=== PATIENT | female | born 1945 | race Two or more races ===

== ENCOUNTER → 2018-01-17 | Outpatient (REF) | payer BC, MEDICARE ==
[2018-01-17 16:25] LABS: BASO # 0.1 10^3/uL (0.0-0.2); EOS # 0.2 10^3/uL (0.0-0.50); EOS % 2.7 % (0.0-3.0); HEMATOCRIT 42.2 % (36.0-47.0); HEMOGLOBIN 13.7 g/dl (12.0-16.0); IMMATURE GRANULOCYTE % 0.1 % (0-3.0); LYMPH # 1.8 10^3/uL (1.5-4.5); MEAN CORPUSCULAR HEMOGLOBIN 29.6 pg (27.0-33.0); MEAN CORPUSCULAR HGB CONC 32.5 g/dl (32.0-36.5); MEAN CORPUSCULAR VOLUME 91.1 fl (80.0-96.0); MONO # 0.6 10^3/uL (0.0-0.8); NEUTROPHILS # 4.1 10^3/uL (1.8-7.7); NEUTROPHILS % 60.2 % (36.0-66.0); PLATELET COUNT, AUTOMATED 269 10^3/uL (150-450); RED BLOOD COUNT 4.63 10^6/uL (4.00-5.40); RED CELL DISTRIBUTION WIDTH 12.7 % (11.5-14.5); WHITE BLOOD COUNT 6.8 10^3/uL (4.0-10.0)
[2018-01-17 16:45] LABS: ALBUMIN/GLOBULIN RATIO 1.25 (1.00-1.93); ALKALINE PHOSPHATASE 83 U/L (45-117); ALT/SGPT 18 U/L (12-78); ANION GAP 6 MEQ/L (8-16); AST/SGOT 16 U/L (7-37); BILIRUBIN,TOTAL 0.3 MG/DL (0.2-1.0); BLOOD UREA NITROGEN 23 MG/DL (7-18); CALCIUM LEVEL 9.2 MG/DL (8.8-10.2); CARBON DIOXIDE LEVEL 31 MEQ/L (21-32); CHLORIDE LEVEL 103 MEQ/L (98-107); CREATININE FOR GFR 0.84 MG/DL (0.55-1.30); GLOMERULAR FILTRATION RATE > 60.0 (>39); GLUCOSE, FASTING 98 MG/DL (70-100); POTASSIUM SERUM 4.5 MEQ/L (3.5-5.1); SODIUM LEVEL 140 MEQ/L (136-145); TOTAL PROTEIN 7.2 GM/DL (6.4-8.2)
== END ==
LOC: M SFHCCLAY 09:32
DX: R07.89 Other chest pain (principal); R53.83 Other fatigue
CPT/HCPCS: 84443

== ENCOUNTER → 2018-02-14 | Outpatient (REF) | payer BC, MEDICARE ==
[2018-02-14 17:27] LABS: TOTAL T3 115.9 NG/DL (60.0-181.0)
[2018-02-14 17:36] LABS: THYROXINE (T4) 11.4 UG/DL (4.5-12.0)
== END ==
LOC: M SFHCCLAY 11:25
DX: E03.9 Hypothyroidism, unspecified (principal)
CPT/HCPCS: 84443

== ENCOUNTER → 2018-05-21 | Outpatient (REF) | payer BC, MEDICARE | LOC: M SFHCCLAY 09:31 | DX: E03.9 Hypothyroidism, unspecified (principal) ==

== ENCOUNTER → 2018-10-22 | Outpatient (CLI) | payer BC, MEDICARE | LOC: M PLARAD 15:33 | DX: R91.1 Solitary pulmonary nodule (principal) | CPT/HCPCS: 78815 ==

== ENCOUNTER 2018-11-18 05:49 | Day surgery (SDC) | payer BC, MEDICARE ==
[~2018-11-18] VITALS: Ht 152.4 cm; Wt 57.5 kg
[~2018-11-18 05:49] MED LIST: ANOR1AER PO; LEVO50TA5 PO; LEXA5TAB13 PO
[2018-11-18] MEDS ORDERED: LR 1,000 ML IV ONE (06:00)
[2018-11-18] MEDS ORDERED: ROCURONIUM BROMIDE 50 MG/5 ML VIAL As Ordered ONE (07:13)
[2018-11-18] MEDS ORDERED: dexameTHASONE 4 MG/ML 1ML VIAL (J1100) As Ordered ONE (07:13)
[2018-11-18] MEDS ORDERED: PROPOFOL 200 MG/20 ML VIAL As Ordered ONE (07:13)
[2018-11-18] MEDS ORDERED: LIDOCAINE 2% INJ 100 MG/5 ML SDV (FOR ANES.) As Ordered ONE (07:13)
[2018-11-18] MEDS ORDERED: ONDANSETRON 4MG/2ML VIAL (J2405) As Ordered ONE (07:13)
[2018-11-18] MEDS ORDERED: MIDAZOLAM INJ 2 MG/2 ML VIAL (J2250) As Ordered ONE (07:16)
[2018-11-18] MEDS ORDERED: fentaNYL 250 MCG/5 ML INJECTION (J3010) As Ordered ONE (07:16)
[2018-11-18] MEDS ORDERED: CETACAINE SPRAY 5GM As Ordered ONE (07:22)
[2018-11-18] MEDS ORDERED: THROMBIN SOLN 20,000 UNITS KIT As Ordered ONE (07:22)
[2018-11-18] MEDS ORDERED: LIDOCAINE 1% MDV 20ML VIAL As Ordered ONE (07:22)
[2018-11-18] MEDS ORDERED: EPINEPHrine 1MG/10ML SYRINGE 1.5IN As Ordered ONE (07:23)
[2018-11-18] MEDS ORDERED: LIDOCAINE VISCOUS 2% SOLN 15ML UDC As Ordered ONE (07:23)
[2018-11-18] MEDS ORDERED: SUGAMMADEX SODIUM 500 MG/5 ML VIAL (BRIDION) As Ordered ONE (08:09)
--- NOTE | 2018-11-18 08:40 | RO ---
DATE OF PROCEDURE: 11/18/2018 PREPROCEDURE DIAGNOSES: Right lower lobe nodule, abnormal chest CT. POSTPROCEDURE DIAGNOSES: Right lower lobe nodule, abnormal chest CT. Findings of normal anatomic variation of the airway. PROCEDURE: Bronchoscopy with endobronchial ultrasound and electromagnetic navigation procedure with fiducial marker placement. SURGEON: Dr. Black Walsh. PATTERN STAMPER: None. ANESTHESIA: General. Please refer to their records for details. ESTIMATED BLOOD LOSS: None significant. SPECIMENS OBTAINED: 1. Right lower lobe transbronchial fine needle aspiration (FNA). 2. Right lower lobe forceps transbronchial biopsy. 3. Right lower lobe transbronchial brushing. DESCRIPTION OF PROCEDURE: After informed consent was reviewed with the patient in the preoperative area, she was brought to OR #6 which is a pre-mapped room. Time out was performed with two patient identifiers identifying correct site and correct procedure. General anesthesia was initiated with an 8.5 endotracheal tube and case was handed over to me. Cetacaine spray was used to anesthetize the airways. The IT190 bronchoscope was then inserted into the airway after another time out with two patient identifiers identifying correct site, correct procedure. The bronchoscope was inserted into the airway. Jo with sharp right main stem bronchi were normal. Trachea was midline. Right bronchus (RB) 1 through 10 was normal without endobronchial lesions. Left bronchus (LB) 1 through 10 normal without endobronchial lesions. There were no significant abnormalities except for anatomic variation. The bronchoscope was then retracted into the endotracheal tube. Automatic registration was then performed with navigation procedure. This was confirmed. Target #1 was easily navigated to in the superior basal segment right lower lobe. This was confirmed with fluoroscopy and radial probe ultrasound. GenCut fine needle aspirations were then taken along with forceps biopsies. After adequate sampling, brushing was performed. One marker was then placed. It was proximal to the area of biopsy. Sheath was then removed. Airways were suctioned. Bronchoscope was then removed. Endobronchial ultrasound was then inserted. I viewed the subcarinal and pretracheal area. There was no evidence of mediastinal adenopathy. No fine needle aspirations were taken at that point in time. Patient tolerated the procedure well. Postprocedure chest x-ray is pending. [facility]
[2018-11-18] MEDS ORDERED: LR 1,000 ML IV SCH (09:00)
[2018-11-18] MEDS ORDERED: fentaNYL 100 MCG/2 ML INJECTION (J3010) IV PRN (09:00)
[2018-11-18] MEDS ORDERED: ONDANSETRON 4MG/2ML VIAL (J2405) IV PRN (09:00)
--- NOTE | 2018-11-18 09:16 | REP ---
Portable chest x-ray: Single view. History: Postop. Findings: The lungs are hyperinflated. There is a fiducial marker in the right perihilar region. There is no evidence of pneumothorax or infiltrate. Heart is not enlarged. Impression: Right perihilar fiducial marker noted. No complication seen. Electronically Signed by Austen Novak MD 11/18/2018 10:57 A
[2018-11-18 10:35] VITALS: BP 124/57
== END 2018-11-18 10:45 | disposition home or self-care (01) ==
LOC: M SDC 05:49
PROVIDERS: ATTEND Internal Medicine Pulmonary Disease
DX: R91.1 Solitary pulmonary nodule (principal); J44.9 Chronic obstructive pulmonary disease, unspecified; Z87.891 Personal history of nicotine dependence; E03.9 Hypothyroidism, unspecified; F32.9 Major depressive disorder, single episode, unspecified; Z79.899 Other long term (current) drug therapy
CPT/HCPCS: 31623; 31626; 31627; 31628; 31629; 71045; 76000; 88104; 88173; 88305; 88313; A4648; J1100; J2250; J2405; J3010

== ENCOUNTER → 2018-12-12 | Outpatient (REF) | payer BC, MEDICARE ==
[2018-12-13 12:37] LABS: THYROID STIMULATING HORMONE 2.03 uIU/ML (0.358-3.740); THYROXINE (T4) 12.3 UG/DL (4.5-12.0)
== END ==
LOC: M SFHCCLAY 13:59
PROVIDERS: ATTEND Family Medicine
DX: E03.9 Hypothyroidism, unspecified (principal)

== ENCOUNTER → 2019-02-19 | Outpatient (REF) | payer BC, MEDICARE ==
[2019-02-20 13:38] LABS: CHLAMYDIA DNA AMPLIFICATION NEGATIVE (NEGATIVE); GC DNA AMPLIFICATION NEGATIVE (NEGATIVE)
== END ==
LOC: M SFHCCLAY 14:41
PROVIDERS: ATTEND Nurse Practitioner Family
DX: N76.0 Acute vaginitis (principal)

== ENCOUNTER → 2019-05-12 | Outpatient (CLI) | payer BC, MEDICARE ==
--- NOTE | 2019-05-12 12:09 | REP ---
Clinical: Solitary pulmonary nodule. Technique: Axial noncontrast images from the thoracic inlet to the upper abdomen with coronal and sagittal re-formations. Comparison: 09/26/2018. Findings: 8 mm pulmonary nodule with subtle spiculated margin in the right lower lobe (image 43) may be slightly increased in size from prior examination. 7 mm noncalcified subpleural nodule is identified along the posterior right upper lobe (image 23) which is similar to prior examination. Underlying chronic COPD/emphysematous changes with mild chronic bronchiectasis again noted. No further consolidation. No effusion. No pneumothorax. No definite adenopathy. Atherosclerotic changes to the aorta and coronary arteries noted without aortic aneurysm or cardiomegaly. No pericardial effusion. Limited upper abdomen demonstrates normal bilateral adrenal glands and evidence of prior cholecystectomy. Musculoskeletal structures intact. Impression: Two nodular densities as described above similar to prior examination although subtle increase in size cannot definitively be excluded due to variations in technique. Electronically Signed by Juan Jose Galdamez MD 05/12/2019 12:00 P
== END ==
LOC: M RAD 10:49
PROVIDERS: ATTEND Internal Medicine Pulmonary Disease
DX: R91.1 Solitary pulmonary nodule (principal)

== ENCOUNTER → 2019-06-02 | Outpatient (REF) | payer BC, MEDICARE | LOC: M SFHCCLAY 14:14 | PROVIDERS: ATTEND Family Medicine | DX: E03.9 Hypothyroidism, unspecified (principal) ==

== ENCOUNTER 2019-08-30 14:43 | Emergency (ER) | payer BC, MEDICARE ==
[~2019-08-30] VITALS: Ht 152.4 cm; Wt 56.6 kg
[2019-08-30] MEDS ORDERED: SPIR12.9 (14:50)
[2019-08-30] MEDS ORDERED: LACTULOSE 20 GM/30 ML SYRUP UD PO ONE (16:15)
[2019-08-30] MEDS ORDERED: MIRALAX *UNIT DOSE* 17GM PACKET PO ONE (16:45)
[2019-08-30] MEDS ORDERED: FLEET OIL RETENTION ENEMA PR PRN (16:45)
[2019-08-30] MEDS ORDERED: ISOVUE-370 76% 100ML VIAL (Q9967) As Ordered ONE (17:34)
[2019-08-30 17:37] LABS: HEMATOCRIT 41.1 % (36.0-47.0); HEMOGLOBIN 13.7 g/dl (12.0-15.5); MEAN CORPUSCULAR HEMOGLOBIN 30.8 pg (27.0-33.0); MEAN CORPUSCULAR HGB CONC 33.3 g/dl (32.0-36.5); MEAN CORPUSCULAR VOLUME 92.4 fl (80.0-96.0); PLATELET COUNT, AUTOMATED 276 10^3/uL (150-450); RED BLOOD COUNT 4.45 10^6/uL (4.00-5.40)
[2019-08-30 18:03] LABS: ALBUMIN 3.7 GM/DL (3.2-5.2); ALT/SGPT 25 U/L (12-78); BILIRUBIN,DIRECT < 0.1 MG/DL (0.0-0.2); BILIRUBIN,TOTAL 0.3 MG/DL (0.2-1.0); LIPASE 88 U/L (73-393); TOTAL PROTEIN 6.9 GM/DL (6.4-8.2)
--- NOTE | 2019-08-30 18:23 | REPVR ---
PROCEDURE INFORMATION: Exam: CT Abdomen And Pelvis With Contrast Exam date and time: 08/30/2019 5:35 PM Clinical history: 74 years old, female; Constipation; Additional info: Constipation x 8 days, fullness, weight loss TECHNIQUE: Imaging protocol: Computed tomography of the abdomen and pelvis with intravenous contrast. Radiation optimization: All CT scans at this facility use at least one of these dose optimization techniques: automated exposure control; mA and/or kV adjustment per patient size (includes targeted exams where dose is matched to clinical indication); or iterative reconstruction. Contrast material: ISOVUE 370; Contrast volume: 100 ml; Contrast route: IV; COMPARISON: PT PET/CT Skull/mid thigh 10/22/2018 5:13 PM FINDINGS: Lungs: No suspicious mass or airspace process in the visualized lung bases. Liver: Liver appears normal with no focal abnormality. Gallbladder and bile ducts: Gallbladder is surgically absent. Prominent central bile ducts, likely postcholecystectomy capacitance effect. Pancreas: Pancreas appears normal. No focal mass or peripancreatic inflammation. Spleen: Spleen appears homogeneous without focal mass. Adrenals: Adrenal glands are normal in appearance. Kidneys and ureters: Kidneys appear normal, with no stone, solid mass or hydronephrosis. Stomach and bowel: No evidence of small bowel obstruction. Multiple fluid-filled loops of nondilated bowel with enhancing mucosa are present. Diverticular changes are present within the colon without inflammation. Appendix: Appendix is not seen. No RLQ inflammation to suggest appendicitis. Intraperitoneal space: No pneumoperitoneum. Vasculature: Atherosclerotic change present in the aorta, without aneurysm. Main portal and splenic veins enhance normally. Lymph nodes: No enlarged lymph nodes. Bladder: Urinary bladder appears normal. Reproductive: Uterus is surgically absent. Ovaries are not visualized. Bones/joints: Bony structures show no acute fracture or destructive process. IMPRESSION: 1. No evidence of rectal fecal impaction. Recommend a roughly 4 cm in diameter with small volume of stool present 2. Colonic diverticulosis without focal inflammation. Electronically signed by: Herbert De Paz On 08/30/2019 18:23:10 PM
[2019-08-30] MEDS ORDERED: MAGNESIUM CITRATE 300 ML BTL PO ONE (19:45)
[2019-08-30] MEDS ORDERED: LACT10SO29 PO (21:15)
[2019-08-30 21:22] VITALS: BP 139/60
--- NOTE | 2019-09-01 08:26 | REP ---
KUB: Single view. History: Abdomen pain. Constipation. Findings: There are clips in right upper quadrant of the abdomen. The bowel gas pattern is normal. There is air and stool in a nondistended colon. No colonic distension is seen. No small bowel dilation is noted. Psoas margins and flank stripes are intact. There are degenerative changes in the lumbar spine and hips. Impression: Normal bowel gas pattern. Clips right upper quadrant. Otherwise negative. Electronically Signed by Austen Novak MD 08/30/2019 03:40 P
== END 2019-08-30 21:25 | disposition home or self-care (01) ==
LOC: M ED 14:43
DX: K59.00 Constipation, unspecified (principal); K80.20 Calculus of gallbladder without cholecystitis without obstruction; Z87.448 Personal history of other diseases of urinary system; K21.9 Gastro-esophageal reflux disease without esophagitis; K57.32 Diverticulitis of large intestine without perforation or abscess without bleeding; E03.9 Hypothyroidism, unspecified; R91.1 Solitary pulmonary nodule; Z87.891 Personal history of nicotine dependence; Z87.19 Personal history of other diseases of the digestive system; Z79.899 Other long term (current) drug therapy; Z88.5 Allergy status to narcotic agent
CPT/HCPCS: 74018; 74177; 80047; 80076; 83690; 85027; 99284; Q9967

== ENCOUNTER → 2019-10-14 | Outpatient (REF) | payer BC, MEDICARE ==
[~2019-10-14] MED LIST changes: +LACT10SO29 PO; +SPIR12.9
[2019-10-15 15:39] LABS: BASO # 0.1 10^3/uL (0.0-0.2); BASO % 0.7 % (0.0-1.0); EOS # 0.2 10^3/uL (0.0-0.5); HEMATOCRIT 38.3 % (36.0-47.0); HEMOGLOBIN 12.4 g/dl (12.0-15.5); LYMPH # 1.9 10^3/uL (1.5-5.0); LYMPH % 27.4 % (24.0-44.0); MEAN CORPUSCULAR HEMOGLOBIN 30.5 pg (27.0-33.0); MEAN CORPUSCULAR HGB CONC 32.4 g/dl (32.0-36.5); MEAN CORPUSCULAR VOLUME 94.3 fl (80.0-96.0); MONO # 0.6 10^3/uL (0.0-0.8); MONO % 8.8 % (0.0-5.0); NEUTROPHILS # 4.2 10^3/uL (1.5-8.5); NEUTROPHILS % 59.8 % (36.0-66.0); PLATELET COUNT, AUTOMATED 286 10^3/uL (150-450); RED BLOOD COUNT 4.06 10^6/uL (4.00-5.40); WHITE BLOOD COUNT 6.9 10^3/uL (4.0-10.0)
[2019-10-15 16:04] LABS: ALBUMIN 3.5 GM/DL (3.2-5.2); ALT/SGPT 25 U/L (12-78); AMYLASE 21 U/L (25-115); BILIRUBIN,TOTAL 0.2 MG/DL (0.2-1.0); BLOOD UREA NITROGEN 15 MG/DL (7-18); CALCIUM LEVEL 9.2 MG/DL (8.8-10.2); CARBON DIOXIDE LEVEL 28 MEQ/L (21-32); CHLORIDE LEVEL 105 MEQ/L (98-107); CREATININE FOR GFR 0.83 MG/DL (0.55-1.30); GLOMERULAR FILTRATION RATE > 60.0 (>39); GLUCOSE, FASTING 71 MG/DL (70-100); LIPASE 103 U/L (73-393); SODIUM LEVEL 141 MEQ/L (136-145); TOTAL PROTEIN 6.9 GM/DL (6.4-8.2)
== END ==
LOC: M SFHCCLAY 14:06
PROVIDERS: ATTEND Family Medicine
DX: R10.12 Left upper quadrant pain (principal)

== ENCOUNTER 2019-11-01 01:23 | Emergency (ER) | payer BC, MEDICARE ==
[~2019-11-01] VITALS: Ht 152.4 cm; Wt 52.3 kg
[2019-11-01] MEDS ORDERED: PANT20TA2 (01:33)
[2019-11-01 03:33] LABS: BASO # 0.1 10^3/uL (0.0-0.2); BASO % 0.7 % (0.0-1.0); EOS # 0.1 10^3/uL (0.0-0.5); EOS % 1.3 % (0.0-3.0); HEMATOCRIT 35.2 % (36.0-47.0); HEMOGLOBIN 11.5 g/dl (12.0-15.5); LYMPH # 1.3 10^3/uL (1.5-5.0); MEAN CORPUSCULAR HEMOGLOBIN 30.2 pg (27.0-33.0); MEAN CORPUSCULAR HGB CONC 32.7 g/dl (32.0-36.5); MEAN CORPUSCULAR VOLUME 92.4 fl (80.0-96.0); MONO # 0.7 10^3/uL (0.0-0.8); MONO % 7.4 % (0.0-5.0); NEUTROPHILS # 6.8 10^3/uL (1.5-8.5); PLATELET COUNT, AUTOMATED 290 10^3/uL (150-450); RED BLOOD COUNT 3.81 10^6/uL (4.00-5.40)
[2019-11-01] MEDS ORDERED: MIRA3350 PO (03:35)
[2019-11-01] MEDS ORDERED: TRAM50TA2 PO (03:35)
[2019-11-01] MEDS ORDERED: ONDA8TAB7 PO (03:35)
[2019-11-01 03:59] LABS: ALBUMIN 2.9 GM/DL (3.2-5.2); ALT/SGPT 54 U/L (12-78); BILIRUBIN,DIRECT 0.2 MG/DL (0.0-0.2); BILIRUBIN,TOTAL 0.6 MG/DL (0.2-1.0); BLOOD UREA NITROGEN 13 MG/DL (7-18); CALCIUM LEVEL 8.8 MG/DL (8.8-10.2); CARBON DIOXIDE LEVEL 25 MEQ/L (21-32); CHLORIDE LEVEL 102 MEQ/L (98-107); CREATININE FOR GFR 0.65 MG/DL (0.55-1.30); GLOMERULAR FILTRATION RATE > 60.0 (>39); GLUCOSE, FASTING 90 MG/DL (70-100); LIPASE 83 U/L (73-393); POTASSIUM SERUM 3.9 MEQ/L (3.5-5.1); SODIUM LEVEL 136 MEQ/L (136-145); TOTAL PROTEIN 6.6 GM/DL (6.4-8.2)
[2019-11-01] MEDS ORDERED: KETOROLAC 30 MG/ML VIAL (J1885) IV ONE (04:45)
[2019-11-01] MEDS ORDERED: NS 1,000 ML IV ONE (04:45)
[2019-11-01] MEDS ORDERED: CIPR-249 PO (06:44)
[2019-11-01] MEDS ORDERED: PYRI1TAB5 PO (06:44)
[2019-11-01] MEDS ORDERED: PHENAZOPYRIDINE 100 MG TAB PO ONE (06:45)
[2019-11-01] MEDS ORDERED: CIPROFLOXACIN 500 MG TAB PO ONE (06:45)
[2019-11-01 06:54] VITALS: BP 129/68
[2019-11-13] MEDS ORDERED: OXYC1TAB23 PO (15:17)
== END 2019-11-01 07:00 | disposition home or self-care (01) ==
LOC: M ED 01:23
DX: N39.0 Urinary tract infection, site not specified (principal); Z79.899 Other long term (current) drug therapy; Z88.5 Allergy status to narcotic agent
CPT/HCPCS: 80048; 80076; 81001; 83690; 85025; 87086; 93041; 96361; 96374; 99284; J1885

== ENCOUNTER → 2019-11-14 | Outpatient (CLI) | payer BC, MEDICARE ==
[~2019-11-14] MED LIST changes: +CIPR-249 PO; +GASTROGRAFIN SOLUTION 30ML (Q9963) As Ordered ONE; +ISOVUE-370 76% 100ML VIAL (Q9967) As Ordered ONE; +MIRA3350 PO; +ONDA8TAB7 PO; +OXYC1TAB23 PO; +PANT20TA2; +PYRI1TAB5 PO; +TRAM50TA2 PO
--- NOTE | 2019-11-14 09:29 | REP ---
Clinical: Metastatic disease. Adenopathy. Technique: Axial contrast enhanced images from the thoracic inlet to the upper abdomen using 100 ml Isovue 370 intravenous contrast material with multiplanar re-formations. Findings: Satisfactory enhancement of the pulmonary vasculature is achieved and no filling defects are identified to suggest pulmonary embolus. Further evaluation of the mediastinum demonstrates normal thoracic aorta, heart and pericardium. The bilateral lung arias demonstrate chronic emphysematous changes and scattered scarring. A subpleural nodule in the posterior right upper lobe and nodule in the right lower lobe remains stable compared to 05/12/2019. No new consolidation, nodule or mass appreciated. No effusion. 18 mm lymph node in the right hilum identified. No further significant adenopathy noted. Impression: No evidence for pulmonary embolus. No acute mediastinal or pleural parenchymal process. Two stable nodules as compared to the 05/12/2019. 18 mm right hilar lymph node. No further adenopathy. Electronically Signed by Juan Jose Galdamez MD 11/14/2019 09:19 A
--- NOTE | 2019-11-14 09:41 | REP ---
Clinical: Metastatic lymphadenopathy. Technique: Axial contrast enhanced images from the lung bases to the pubic symphysis using oral (per protocol) and 100 ml Isovue 370 intravenous contrast material with coronal and sagittal re-formations. Delayed images of the abdomen obtained. Findings: Liver, spleen, pancreas, bilateral adrenal glands and kidneys are normal. Evidence for prior cholecystectomy. There is no evidence for bowel obstruction or acute inflammatory process. Colonic and sigmoid diverticulosis noted without acute diverticulitis. Pelvis demonstrates collapsed bladder and evidence for prior hysterectomy. Multiple mesenteric mass lesions are appreciated which measure up to 5 cm maximal diameter and appear markedly increased/new as compared to 08/30/2019. No ascites. No retroperitoneal adenopathy. No free air. Atherosclerotic changes to the aorta and vasculature. Osseous structures without obvious focal lesion. Impression: 1. Large neoplastic mass lesions scattered throughout the mesentery with the largest lesions measuring up to 5 cm and the deepest right lower quadrant lesion having central necrotic appearance. Lesions are new/considerably increased in size from prior examination. 2. Diverticulosis without acute diverticulitis. 3. No ascites. 4. No retroperitoneal adenopathy. Electronically Signed by Juan Jose Galdamez MD 11/14/2019 09:32 A
== END ==
LOC: M RAD 07:52
PROVIDERS: ATTEND Internal Medicine Medical Oncology
DX: C34.90 Malignant neoplasm of unspecified part of unspecified bronchus or lung (principal)
CPT/HCPCS: 71260; 74177; Q9963; Q9967

== ENCOUNTER → 2019-11-19 | Outpatient (CLI) | payer BC, MEDICARE ==
[~2019-11-19] MED LIST changes: +COLA100C5 PO; -GASTROGRAFIN SOLUTION 30ML (Q9963) As Ordered ONE; -ISOVUE-370 76% 100ML VIAL (Q9967) As Ordered ONE; +OMEP40CA97 PO; +STIO1AER IN
--- NOTE | 2019-11-19 17:41 | REP ---
PET/CT: History: Lung nodule. Comparisons: Comparison PET-CT study October 22, 2018. Comparison CT study of the chest is from 14 November 2019. Comparison is made with abdominal CT study dated November 14, 2019. TECHNIQUE: 71 minutes following the intravenous injection of a 8.90 mCi dose of F-18 FDG, three-dimensional PET scintigraphy is acquired from the skull base to the proximal thighs. Triplanar noncontrast CT scanning is acquired through the same anatomic range for attenuation correction, and image registration with scan parameters optimized to minimize radiation exposure to the patient. PET scintigraphy and CT datasets were fused and displayed on a workstation with multiplanar and projection display capability. PET/CT Findings: Head and neck soft tissues are unremarkable. The superior segment right lower lobe pulmonary nodule seen on the chest CT study is hypermetabolic. Maximum standard uptake value is 5.07. There is right hilar hypermetabolic adenopathy. Maximum standard uptake value is 9.53. There is no hypermetabolic uptake at the site of the pleural-based nodular density in the upper lobe on the right. This is small. No other abnormal hypermetabolic uptake is seen in the thorax. In the abdomen, there is multifocal peritoneal nodular hypermetabolic uptake. Anterior to the upper pole of the left kidney, there is a 1.8 cm small mass which shows hypermetabolic uptake, maximum standard uptake value here is 17.03. There is a second smaller mass adjacent to this in the left upper quadrant with maximum standard uptake value 10.35. There is a mass-like opacity associated with a small bowel loop in the left mid abdomen which is also hypermetabolic. Maximum standard uptake value in this is 13.91. This area measures 4.0 cm in greatest diameter. There is a hypermetabolic 1 cm paraduodenal lymph node in the right upper quadrant with maximum standard uptake value 4.33. There are three bowel associated focal hypermetabolic masses in the pelvis anteriorly. Maximum standard uptake value in these ranges up to 19.24. These correspond to the multiple masses seen on CT. Lastly, there is a small 1 cm hypermetabolic nodule in the anterior margin of the gluteus musculature adjacent to the iliac crest on the left. Maximum SUV value 6.20. There is no abnormal skeletal hypermetabolic uptake. Exam is otherwise unremarkable. Impression: There are multiple new hypermetabolic chandler and bowel associated masses in the abdomen. There is a skeletal muscle deposit in the left gluteus musculature. In addition, the right lower lobe spiculated nodule and a new right hilar lymph node are hypermetabolic in the chest. Two separate primary malignancies are a possibility. Electronically Signed by Austen Novak MD 11/19/2019 09:28 P
== END ==
LOC: M PLARAD 07:29
PROVIDERS: ATTEND Internal Medicine Medical Oncology
DX: R91.1 Solitary pulmonary nodule (principal)
CPT/HCPCS: 78815; A9552

== ENCOUNTER → 2019-11-25 | Outpatient (CLI) | payer BC, MEDICARE ==
[~2019-11-25] MED LIST changes: +LIDOCAINE 1% MDV 20ML VIAL As Ordered ONE; +ONDA8TAB10 PO; -ONDA8TAB7 PO; +OXYC10TA3 PO
[2019-11-25 16:21] VITALS: BP 153/60
--- NOTE | 2019-11-25 18:11 | REP ---
ULTRASOUND-GUIDED ABDOMINAL MASS BIOPSY The procedure was performed under the direct supervision of Dr. Novak. Patient has a history of large neoplastic mass lesions scattered throughout the mesentery seen on a previous CT scan dated 11/14/2019. A mass inferior to the umbilicus was localized for biopsy using ultrasound guidance. The skin was prepped and draped in a sterile fashion. 1% lidocaine was used as a local anesthetic. Using ultrasound guidance a 17/18 gauge coaxial needle biopsy system was inserted and advanced into the mass. Eight core biopsy samples were obtained and sent to lab. The patient tolerated the procedure well and there were no immediate complications. After the appropriate amount of monitored convalescence the patient was discharged from the department. Electronically Signed by JULIO Eller 11/25/2019 05:03 P Electronically Signed by Austen Novak MD 11/25/2019 06:02 P
== END ==
LOC: M IRPRO 14:46
PROVIDERS: ATTEND Internal Medicine Medical Oncology
DX: C79.89 Secondary malignant neoplasm of other specified sites (principal)

== ENCOUNTER → 2019-12-08 | Outpatient (CLI) | payer BC, MEDICARE ==
[~2019-12-08] MED LIST changes: +ISOVUE-300 61% 50ML VIAL (Q9967) As Ordered ONE; +MIDAZOLAM INJ 2 MG/2 ML VIAL (J2250) As Ordered ONE; +MIRA1POW3 PO; +PROC10TA4 PO; +SENN-85 PO; +ceFAZolin 1GM INJ (J0690 PER 500MG) As Ordered ONE; +diphenhydrAMINE INJ 50MG/ML VIAL (J1200) As Ordered ONE; +fentaNYL 100 MCG/2 ML INJECTION (J3010) As Ordered ONE
--- NOTE | 2019-12-08 14:20 | IRHP ---
[facility] IR Pre-Procedure H & P General Date of Service: Dec 08, 2019 Procedure: Same Day Surgery Interval History and Physical I have seen the patient and reviewed last H & P performed within 30 days. There is no significant interval change. History of Present Illness Chief Complaint The patient is a 74-year-old female admitted with a reason for visit of Chemo Treatment. 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 LUNGS: normal breathing at rest. ASA Classification ASA Classification: II-Mild systemic disease, III-Severe systemic dis. Mallampati Score: II NPO: Yes Problems with prior sedation: No Obstructive Sleep Apnea: No Plan moderate sedation Allergies Coded Allergies: morphine (Verified Adverse Reaction, Intermediate, HALLUCINATIONS, 02/13/19) Home Medications Scheduled Docusate Sodium (Colace), 100 MG PO DAILY, (Reported) Escitalopram Oxalate (Lexapro), 5 MG PO DAILY, (Reported) Levothyroxine Sodium (Levothyroxine Sodium), 50 MCG PO DAILY, (Reported) Scheduled PRN Oxycodone HCl/Acetaminophen (Oxycodone-Acetaminophen 10-325), 1 TAB PO QIDP PRN for pain Miscellaneous Medications Tiotropium Br/Olodaterol HCl (Stiolto Respimat Inhal [place]), 1 AER IN, (Reported) Discontinued Medications Omeprazole (Omeprazole), 1 CAP PO DAILY Discontinued Reason: Pt states not taking Oxycodone HCl/Acetaminophen (Oxycodone-Acetaminophen 5-325), 1 TAB PO QIDP PRN for pain, (Reported) Discontinued Reason: Pt states not taking VS, I&O, 24H, Fishbone Vital Signs/I&O Vital Signs Date Time Temp Pulse Resp B/P (MAP) Pulse Ox O2 Delivery O2 Flow Rate FiO2 12/08/19 14:00 81 16 98 Nasal Cannula 12/08/19 13:45 2 12/08/19 13:01 98.8 BREANNA JORGE MD Dec 08, 2019 14:19
[2019-12-08 16:15] VITALS: BP 127/59
--- NOTE | 2019-12-09 09:08 | REP ---
IR Ultrasound and fluoroscopy-guided port placement. IR Ultrasound of the neck. IR Moderate sedation. Clinical information: Adenocarcinoma. Physician: Dr. Sexton. Procedure: The patient was advised of the benefits, risks, and alternatives of the procedure and informed consent was obtained. A time-out was performed with verification of the patient's name, MRN, site of procedure and type of procedure to be performed. The patient was positioned in the supine position on the angiographic table. The site was prepped and draped in the usual sterile fashion. Moderate sedation was performed by the physician including the presence of an independent trained observer who assisted and monitored the patient's level of consciousness and physiologic status. Following the administration of fentanyl and Versed, the physician spent 45 minutes of continuous face to face time with the patient. Ultrasound of the neck reveals a patent and compressible right internal jugular vein. A subwarehouse supervisor radiograph reveals no gross abnormality. The neck and anterior chest wall were anesthetized with lidocaine. The right internal jugular vein was accessed using a microintroducer needle under ultrasound guidance, via a lateral approach. An 018 wire was advanced into the superior vena cava, the needle was removed and a microsheath was placed. An Amplatz wire was then passed into the inferior vena cava. An incision at the internal jugular vein access site and anterior chest wall were made using a scalpel. An incision was made at the anterior chest wall. A small pocket was created using a combination of blunt and sharp dissection. A tunneling device was then used to pass the catheter from the pocket to the neck puncture site. An 8-Swiss Angio dynamics Smart power port was then positioned in the pocket. The catheter was then measured and cut. The introducer sheath was exchanged for a peel-away sheath. The catheter was passed through the peel-away sheath into the internal jugular vein and the peel-away sheath was removed. The port tip was positioned at the cavo atrial junction. The port was then accessed with a Pardo needle. The port flushes and aspirates well. The puncture site in the neck was closed. The chest wall incision was then closed with 2-0 Vicryl and 4-0 Monocryl. Glue and Steri-Strips were applied. A sterile dressing was then applied. The patient tolerated the procedure well and was returned to the PRU in stable condition. Estimated blood loss: <5 ml. Complications: None. Conclusion: 1. Successful placement of an 8-Swiss Angio dynamics Smart power port via the right internal jugular vein. The port is ready for immediate use. 2. Patient to follow up in IR clinic in 2 weeks. Thank you for this referral. Electronically Signed by Yoly Sexton MD 12/09/2019 09:06 A
== END ==
LOC: M IRPRO 12:51
PROVIDERS: ATTEND Radiology Diagnostic Radiology
DX: C79.89 Secondary malignant neoplasm of other specified sites (principal); Z88.5 Allergy status to narcotic agent; Z79.899 Other long term (current) drug therapy
CPT/HCPCS: 36561; 99152; 99153; C1769; C1788; C1894; J0690; J1200; J1642; J1644; J2250; J3010

== ENCOUNTER → 2020-01-12 | Outpatient (CLI) | payer BC, MEDICARE ==
[~2020-01-12] MED LIST changes: +GASTROGRAFIN SOLUTION 30ML (Q9963) As Ordered ONE; -ISOVUE-300 61% 50ML VIAL (Q9967) As Ordered ONE; +ISOVUE-370 76% 100ML VIAL (Q9967) As Ordered ONE; -LIDOCAINE 1% MDV 20ML VIAL As Ordered ONE; -MIDAZOLAM INJ 2 MG/2 ML VIAL (J2250) As Ordered ONE; -ceFAZolin 1GM INJ (J0690 PER 500MG) As Ordered ONE; -diphenhydrAMINE INJ 50MG/ML VIAL (J1200) As Ordered ONE; -fentaNYL 100 MCG/2 ML INJECTION (J3010) As Ordered ONE
--- NOTE | 2020-01-12 14:34 | REPVR ---
PROCEDURE INFORMATION: Exam: CT Chest With Contrast Exam date and time: 01/12/2020 1:53 PM Age: 74 years old Clinical indication: Condition or disease; Other: Gastric CA; Additional info: Met signet ring CA TECHNIQUE: Imaging protocol: Computed tomography of the chest with intravenous contrast. Radiation optimization: All CT scans at this facility use at least one of these dose optimization techniques: automated exposure control; mA and/or kV adjustment per patient size (includes targeted exams where dose is matched to clinical indication); or iterative reconstruction. Contrast material: ISOVUE 370; Contrast volume: 100 ml; Contrast route: IV; COMPARISON: CT Chest with contrast 11/14/2019 9:08 AM FINDINGS: Tubes, catheters and devices: A right-sided Port-A-Cath has been placed, with its tip at the cavoatrial junction. Lungs: There are stable nodules measuring 7 mm in the subpleural right upper lobe (image 201:29) and 9 mm and 2 mm in the right lower lobe (images 201:48,73, respectively). A new nodule measuring 4 mm is present adjacent to the major fissure in the right upper lobe (image 201:38). Minor dependent atelectasis and scattered scarring is again present. There is similar mild centrilobular emphysematous disease. The central airways appear patent. Pleural space: Unremarkable. No pneumothorax. No pleural effusion. Heart: Unremarkable. No cardiomegaly. No pericardial effusion. Mediastinum: A soft tissue density nodule along the right posterior aspect of the mid to lower esophagus measuring 10 x 9 x 13 mm (images 201:72, 203:57) previously measured 3 x 5 x 11 mm. Aorta: The thoracic aorta is nonaneurysmal. Atherosclerotic vascular calcifications are again present. Lymph nodes: There is a similar right hilar lymph node measuring 1.7 x 1.5 cm. No other new lymphadenopathy. Bones/joints: Degenerative changes again involve the spine and shoulders. Bone scan would be more sensitive to osseous metastatic disease. Soft tissues: Unremarkable. Other findings: Dedicated abdominal CT has been performed, and findings below the diaphragm will be reported separately. IMPRESSION: 1. Few stable pulmonary nodules measuring up to 9 mm as compared with 11/14/19, with a new 4 mm nodule in the right upper lobe. Fleischner follow up recommendations for incidental nodules are not indicated. Follow up per patient's medical condition. 2. Enlarging soft tissue density nodule along the mid to lower aspect of the esophagus, probably a lymph node, or possibly an exophytic lesion. Suggest correlation with esophagram and PET. 3. Similar right hilar lymphadenopathy. Attention to this on follow-up. 4. Similar emphysematous disease. Electronically signed by: Agustín Johnson On 01/12/2020 14:34:29 PM
--- NOTE | 2020-01-12 14:49 | REPVR ---
PROCEDURE INFORMATION: Exam: CT Abdomen And Pelvis With Contrast Exam date and time: 01/12/2020 1:53 PM Age: 74 years old Clinical indication: Condition or disease; Cancer; Other: Gastric; Additional info: Met signet ring CA TECHNIQUE: Imaging protocol: Computed tomography of the abdomen and pelvis with intravenous contrast. Radiation optimization: All CT scans at this facility use at least one of these dose optimization techniques: automated exposure control; mA and/or kV adjustment per patient size (includes targeted exams where dose is matched to clinical indication); or iterative reconstruction. Contrast material: ISOVUE 370; Contrast volume: 100 ml; Contrast route: IV; COMPARISON: CT ABD PELVIS WITH CONTRAST 11/14/2019 9:08 AM FINDINGS: Lungs: See separate chest CT report for findings above the diaphragm. Liver: The liver contains a stable 4 mm hypodense lesion in its left lobe, too small to characterize, but homogeneous and not requiring follow-up. It appears otherwise unremarkable. Gallbladder and bile ducts: Cholecystectomy clips are again present. There is similar dilatation of the common bile duct, often seen after cholecystectomy. Pancreas: Normal. No ductal dilation. Spleen: Normal. No splenomegaly. Adrenals: There is a new right adrenal mass, centrally hypodense, measuring 3.4 x 3.0 x 4.2 cm. There is also a new lobulated left adrenal mass, also centrally hypodense, measuring up to 2.3 x 2.1 x 2.3 cm. Kidneys and ureters: The kidneys each contain a few subcentimeter hypodense lesions which are too small to characterize, but not evident previously. They appear otherwise unremarkable. Stomach and bowel: The small bowel is not obstructed. There is again descending and sigmoid colonic diverticulosis without evidence for diverticulitis. The large bowel is otherwise grossly unremarkable in appearance. Appendix: The appendix is not identified, but there are no inflammatory changes in its expected region. Intraperitoneal space: There are again multiple mesenteric masses. These are fairly stable in number, some are enlarging and some are decreasing in size. For example, a mass in the left lower quadrant measuring 5.6 x 4.3 x 6.1 cm (images 205:77, 206:33) previously measured 4.1 x 3.0 x 3.7 cm. A mass in the right pelvis measuring 3.7 x 2.3 x 3.5 cm (images 205:100, 206:38) previously measured 4.9 x 5.0 x 5.5 cm. There is no free air. Small free fluid has developed in the pelvis. Vasculature: The abdominal aorta is nonaneurysmal. Atherosclerotic vascular calcifications are again present. Lymph nodes: Unremarkable. No enlarged lymph nodes. Bladder: Grossly unremarkable. Reproductive: There has again been hysterectomy. No gross adnexal abnormality is apparent, but ultrasound would be more appropriate in this regard. Bones/joints: Degenerative changes again involve the spine and hips. Bone scan would be more sensitive to osseous metastatic disease. Soft tissues: Unremarkable. IMPRESSION: 1. New bilateral adrenal masses as compared with 11/14/19, most suggestive of metastases. In patient with cancer history, consider biopsy or PET-CT. (Rain-Luis Enrique Fermin, ACR White Paper, 2017) 2. Fairly similar number of multiple mesenteric masses, some enlarging and some decreasing in size. 3. Newly evident subcentimeter hypodense bilateral renal lesions, too small to characterize. MRI is preferred for characterizing smaller masses (< 1.5 cm). 4. Small new free fluid in the pelvis. Electronically signed by: Agustín Johnson On 01/12/2020 14:48:32 PM
== END ==
LOC: M RAD 11:42
PROVIDERS: ATTEND Internal Medicine Medical Oncology
DX: C16.9 Malignant neoplasm of stomach, unspecified (principal)
CPT/HCPCS: 71260; 74177; Q9963; Q9967

== ENCOUNTER 2020-01-27 17:29 | Observation (INO) | payer BC, MEDICARE ==
[~2020-01-27] VITALS: Ht 152.4 cm; Wt 43.1 kg
[~2020-01-27 17:29] MED LIST changes: -GASTROGRAFIN SOLUTION 30ML (Q9963) As Ordered ONE; -ISOVUE-370 76% 100ML VIAL (Q9967) As Ordered ONE; -STIO1AER IN; +STIO1AER INH
[2020-01-27] MEDS ORDERED: DULC5TAB PO (17:53)
[2020-01-27] MEDS ORDERED: NS 1,000 ML IV SCH ×2 (18:14→23:45)
[2020-01-27] MEDS ORDERED: ONDANSETRON 4MG/2ML VIAL (J2405) IV ONE (18:15)
[2020-01-27] MEDS ORDERED: fentaNYL 100 MCG/2 ML INJECTION (J3010) IV ONE (18:30)
[2020-01-27 18:50] LABS: BASO # 0.1 10^3/uL (0.0-0.2); BASO % 0.9 % (0.0-1.0); EOS # 0.2 10^3/uL (0.0-0.5); EOS % 1.5 % (0.0-3.0); HEMATOCRIT 32.8 % (36.0-47.0); HEMOGLOBIN 10.5 g/dl (12.0-15.5); LYMPH # 0.9 10^3/uL (1.5-5.0); LYMPH % 9.4 % (24.0-44.0); MEAN CORPUSCULAR HEMOGLOBIN 29.7 pg (27.0-33.0); MEAN CORPUSCULAR VOLUME 92.9 fl (80.0-96.0); MONO # 0.7 10^3/uL (0.0-0.8); MONO % 6.8 % (0.0-5.0); NEUTROPHILS # 7.9 10^3/uL (1.5-8.5); NEUTROPHILS % 81.1 % (36.0-66.0); PLATELET COUNT, AUTOMATED 247 10^3/uL (150-450); RED BLOOD COUNT 3.53 10^6/uL (4.00-5.40); WHITE BLOOD COUNT 9.8 10^3/uL (4.0-10.0)
[2020-01-27 19:29] LABS: ALBUMIN 2.8 GM/DL (3.2-5.2); ALT/SGPT 11 U/L (12-78); BILIRUBIN,DIRECT 0.1 MG/DL (0.0-0.2); BILIRUBIN,TOTAL 0.4 MG/DL (0.2-1.0); BLOOD UREA NITROGEN 19 MG/DL (7-18); CALCIUM LEVEL 8.8 MG/DL (8.8-10.2); CARBON DIOXIDE LEVEL 28 MEQ/L (21-32); CHLORIDE LEVEL 101 MEQ/L (98-107); CREATININE FOR GFR 0.58 MG/DL (0.55-1.30); GLOMERULAR FILTRATION RATE > 60.0 (>39); GLUCOSE, FASTING 96 MG/DL (70-100); LIPASE 57 U/L (73-393); SODIUM LEVEL 134 MEQ/L (136-145); TOTAL PROTEIN 6.5 GM/DL (6.4-8.2)
[2020-01-27] MEDS: GASTROGRAFIN SOLUTION 30ML PO SCH ×2 (19:29→20:05)
[2020-01-27] MEDS: fentaNYL 100 MCG/2 ML INJECTION (J3010) IV PRN ×2 (19:57→21:03)
[2020-01-27] MEDS ORDERED: ISOVUE-370 76% 100ML VIAL (Q9967) As Ordered ONE (20:50)
[2020-01-27] MEDS ORDERED: ESCITALOPRAM OXALATE 5MG TABLET (LEXAPRO) PO SCH (21:00)
[2020-01-27] MEDS ORDERED: LEVOTHYROXINE 50MCG TABLET (0.05MG) PO SCH (21:00)
--- NOTE | 2020-01-27 21:39 | REPVR ---
PROCEDURE INFORMATION: Exam: CT Abdomen And Pelvis With Contrast Exam date and time: 01/27/2020 9:21 PM Age: 74 years old Clinical indication: Abdominal pain; Generalized; Prior surgery; Additional info: Gen abd pain, vomiting TECHNIQUE: Imaging protocol: Computed tomography of the abdomen and pelvis with intravenous contrast. Radiation optimization: All CT scans at this facility use at least one of these dose optimization techniques: automated exposure control; mA and/or kV adjustment per patient size (includes targeted exams where dose is matched to clinical indication); or iterative reconstruction. Contrast material: ISOVUE 370; Contrast volume: 100 ml; Contrast route: IV; COMPARISON: CT ABD PELVIS WITH CONTRAST 01/12/2020 2:02 PM FINDINGS: Lungs: No suspicious mass or airspace process in the visualized lung bases. Liver: See "Gallbladder and bile ducts" finding. Gallbladder and bile ducts: Focal geographic hypoattenuation in the liver around the gallbladder fossa could be from prior traction injury related to the cholecystectomy. This is unchanged. No concerning new focal hepatic abnormality. Pancreas: Pancreas appears normal. No focal mass or peripancreatic inflammation. . Spleen: Spleen appears homogeneous without concerning focal mass. Subcapsular cyst in the splenic hilum is unchanged. Adrenals: Enlarging bilateral adrenal gland masses. The right measures 4.7 cm compared to the prior CT at 3 cm, and the left no measures 3.2 cm compared to 1.5 cm. Kidneys and ureters: Kidneys appear normal, with no stone, solid mass or hydronephrosis. Stomach and bowel: No evidence of small bowel obstruction. Diverticular changes are present within the colon without inflammation. Appendix: Appendix is not convincingly visualized. Intraperitoneal space: No pneumoperitoneum. Trace free fluid is present in the pelvis. Vasculature: Atherosclerotic change present in the aorta, without aneurysm. Main portal and splenic veins enhance normally. Bladder: Urinary bladder appears normal. Reproductive: Uterus is surgically absent. Bones/joints: Bony structures are normal except for lumbar spine degenerative disc changes. Soft tissues: Enhancing anterior left gluteus nataly soft tissue mass adjacent to the iliac crest measuring 2.6 x 2.2 cm increased in size since the prior CT. Other findings: Multiple abdominal and pelvic mesenteric masses are present, many of which are similar to the prior CT. A presacral mass measuring 5 x 3.5 cm appears increased in size significantly. IMPRESSION: 1. Progressive metastatic disease with increase in size of adrenal masses, increase in size of at least 1 of the multiple mesenteric masses, and increase in size of left gluteal muscle metastasis. 2. No evidence of bowel obstruction or acute surgical process. 3. Colonic diverticulosis without active inflammation Electronically signed by: Herbert De Paz On 01/27/2020 21:38:51 PM
[2020-01-27] MEDS ORDERED: PANT20TA2 PO (23:11)
[2020-01-27] MEDS ORDERED: PERCOCET 5MG/325MG TAB PO PRN (23:45)
[2020-01-27] MEDS ORDERED: PROCHLORPERAZINE 5 MG TAB (S0183) PO PRN (23:45)
[2020-01-27] MEDS ORDERED: HYDROMORPHONE HCL 0.5 MG/ 0.5 ML SYRINGE (J1170 PER 1) IV PRN (23:45)
[2020-01-27] MEDS ORDERED: ONDANSETRON 4 MG TAB (S0181) PO PRN (23:45)
[2020-01-28] VITALS (18 sets, daily range): BP systolic 129–139; BP diastolic 58–65; O2SAT 92–96
[2020-01-28] MEDS: PERCOCET 5MG/325MG TAB PO PRN ×3 (01:14→14:37)
--- NOTE | 2020-01-28 01:19 | HPEPDOC ---
[facility] Medical History & Physical Date of Admission Jan 28, 2020 Date of Service: Jan 28, 2020 Attending Physician: ASHISH GORMAN MD History and Physical CHIEF COMPLAINT: Back pain HISTORY OF PRESENT ILLNESS: 74-year-old female with past medical history of metastatic stomach cancer, on immunotherapy, hypothyroidism and COPD presents from home with severe back pain. Patient was diagnosed almost 4 months ago, initially treated with 2 rounds of chemotherapy, now being treated with immunotherapy (Keytruda). She has had this chronic back pain since diagnosis, which is acutely worsened over the past few days to the point that her home pain regimen was not enough. She has associated vomiting, which is also at baseline, but new diarrhea which started today. Pain is located at her mid back level and wraps around the abdomen towards the epigastric region. Patient has no other associated symptoms, denies any shortness of breath, chest pain, headache or dizziness. 10 point review of system is negative except for above PAST MEDICAL HISTORY: 1. Metastatic stomach cancer. 2. Hypothyroidism. 3. COPD. PAST SURGICAL HISTORY: 1. , Hysterectomy. 2. Cholecystectomy. SOCIAL HISTORY: Previous smoker, smoked 1 pack per day for over 30 years Denies alcohol use. Denies drug use FAMILY HISTORY: Family history positive for multiple malignancies including lung cancer, uterine cancer ALLERGIES: Please see below. HOME MEDICATIONS: Please see below. PHYSICAL EXAMINATION: VITAL SIGNS: Please see below. GENERAL: No distress, frail HEENT: Normocephalic, atraumatic, moist mucous membranes NECK: Supple CARDIOVASCULAR EXAMINATION: S1, S2, no murmurs RESPIRATORY EXAMINATION: Clear to auscultation, no wheezing ABDOMINAL EXAMINATION: Soft, mild diffuse tenderness, nondistended, positive bowel sounds EXTREMITIES: Range of motion intact SKIN: No rash NEUROLOGICAL EXAMINATION: Alert and oriented 3, no focal deficits PSYCHIATRIC EXAMINATION: Calm and cooperative LABORATORY DATA: See below. IMAGING: CT abdomen and pelvis showing worsening metastatic disease MICROBIOLOGY: Please see below. ASSESSMENT: 74-year-old female with past medical history of metastatic stomach cancer being admitted for intractable pain and imaging consistent with worsening metastatic disease. . PLAN: 1. Intractable back/abdominal pain. Likely related to worsening malignancy, pain control, IV hydration, stool p bipin for diarrhea. 2. Hypothyroidism. Continue levothyroxine 3. COPD Continue home regimen DVT prophylaxis: Lovenox. GI prophylaxis: Home PPI Vital Signs Vital Signs Date Time Temp Pulse Resp B/P (MAP) Pulse Ox O2 Delivery O2 Flow Rate FiO2 01/28/20 00:32 87 92 01/28/20 00:30 118/55 (76) 01/27/20 21:15 20 Room Air 01/27/20 17:43 98.3 Laboratory Data Labs 24H Laboratory Tests 2 01/27/20 18:39: Immature Granulocyte % (Auto) 0.3, Neutrophils (%) (Auto) 81.1H, Lymphocytes (%) (Auto) 9.4L, Monocytes (%) (Auto) 6.8H, Eosinophils (%) (Auto) 1.5, Basophils (% ) (Auto) 0.9, Neutrophils # (Auto) 7.9, Lymphocytes # (Auto) 0.9L, Monocytes # (Auto) 0.7, Eosinophils # (Auto) 0.2, Basophils # (Auto) 0.1, Nucleated Red Blood Cells % (auto) 0.0, Anion Gap 5L, Glomerular Filtration Rate > 60.0, Calcium Level 8.8, Total Bilirubin 0.4, Direct Bilirubin 0.1, Aspartate Amino Transf (AST/SGOT) 18, Alanine Aminotransferase (ALT/SGPT) 11L, Alkaline Phosphatase 117, Total Protein 6.5, Albumin 2.8L, Albumin/Globulin Ratio 0.76L, Lipase 57L 01/27/20 21:53: Urine Color YELLOW, Urine Appearance CLEAR, Urine pH 5.0, Urine Specific [place] 1.057, Urine Protein NEGATIVE, Urine Glucose (UA) NEGATIVE, Urine Ketones 1+H, Urine Blood NEGATIVE, Urine Nitrite NEGATIVE, Urine Bilirubin NEGATIVE, Urine Urobilinogen 4.0H, Urine Leukocyte Esterase NEGATIVE, Urine WBC (Auto) 3, Urine RBC (Auto) 3, Urine Hyaline Casts (Auto) 0, Urine Bacteria (Auto) NEGATIVE, Urine Squamous Epithelial Cells 0, Urine Mucus (Auto) SMALL, Urine Sperm (Auto) CBC/BMP Laboratory Tests 01/27/20 18:39 Home Medications Scheduled Docusate Sodium (Colace) 100 Mg Capsule, 100 MG PO QHS Escitalopram Oxalate (Lexapro) 5 Mg Tab, 5 MG PO QHS Levothyroxine Sodium (Levothyroxine Sodium) 50 Mcg Tab, 50 MCG PO QHS Pantoprazole Sodium (Pantoprazole Sodium) 20 Mg Tablet.dr, 20 MG PO DAILY Tiotropium Br/Olodaterol HCl (Stiolto Respimat Inhal [place]) 4 Gm Mist.inhal, 1 PUFF INH DAILY Scheduled PRN Bisacodyl (Dulcolax) 5 Mg Tablet.dr, 2 TAB PO DAILY PRN for CONSTIPATION Ondansetron HCl (Ondansetron HCl) 8 Mg Tablet, 8 MG PO Q6H PRN for NAUSEA TAKE ONE TABLET EVERY 6 HOURS NEEDED FOR NAUSEA. Oxycodone HCl/Acetaminophen (Oxycodone-Acetaminophen 10-325) 1 Each Tablet, 1 TAB PO QIDP PRN for pain Prochlorperazine Maleate (Prochlorperazine Maleate) 10 Mg Tablet, 10 MG PO Q8H PRN for NAUSEA TAKE ONE TABLET EVERY 8 HOURS NEEDED FOR NAUSEA. Sennosides (Senna Laxative) 8.6 Mg Tablet, 8.6 MG PO DAILY PRN for CONSTIPATION Allergies Coded Allergies: morphine (Verified Adverse Reaction, Intermediate, HALLUCINATIONS, 02/13/19) A-FIB/CHADSVASC A-FIB History Current/History of A-Fib/PAF?: No ASHISH GORMAN MD Jan 28, 2020 01:19
[2020-01-28 05:36] LABS: HEMATOCRIT 30.5 % (36.0-47.0); HEMOGLOBIN 9.8 g/dl (12.0-15.5); MEAN CORPUSCULAR HEMOGLOBIN 29.5 pg (27.0-33.0); MEAN CORPUSCULAR HGB CONC 32.1 g/dl (32.0-36.5); MEAN CORPUSCULAR VOLUME 91.9 fl (80.0-96.0); PLATELET COUNT, AUTOMATED 254 10^3/uL (150-450); RED BLOOD COUNT 3.32 10^6/uL (4.00-5.40)
[2020-01-28 05:45] LABS: ALBUMIN 2.6 GM/DL (3.2-5.2); ALT/SGPT 10 U/L (12-78); BILIRUBIN,TOTAL 0.3 MG/DL (0.2-1.0); BLOOD UREA NITROGEN 14 MG/DL (7-18); CALCIUM LEVEL 8.3 MG/DL (8.8-10.2); CARBON DIOXIDE LEVEL 27 MEQ/L (21-32); CHLORIDE LEVEL 103 MEQ/L (98-107); CREATININE FOR GFR 0.52 MG/DL (0.55-1.30); GLOMERULAR FILTRATION RATE > 60.0 (>39); GLUCOSE, FASTING 87 MG/DL (70-100); POTASSIUM SERUM 3.7 MEQ/L (3.5-5.1); SODIUM LEVEL 137 MEQ/L (136-145); TOTAL PROTEIN 5.8 GM/DL (6.4-8.2)
[2020-01-28] MEDS ORDERED: ENOXAPARIN 40 MG/0.4 ML SYRINGE (J1650) SC SCH (06:00)
[2020-01-28] MEDS ORDERED: TIOTROPIUM INHALER/CAPSULE (SPIRIVA) INH SCH (08:00)
[2020-01-28] MEDS ORDERED: PANTOPRAZOLE 20 MG TAB PO SCH (09:00)
[2020-01-28] MEDS ORDERED: SENOKOT S TAB PO SCH (09:00)
[2020-01-28] MEDS ORDERED: ENTER DRUG NAME HERE (PATIENT'S OWN MED) INH SCH (09:00)
[2020-01-28] MEDS ORDERED: HYOS125TA PO (15:57)
[2020-01-28] MEDS ORDERED: LORA0.5T5 PO (15:57)
[2020-01-28] MEDS ORDERED: ONDA4TAB6 PO (16:00)
[2020-01-28] MEDS ORDERED: PERCOCET PO (16:02)
--- NOTE | 2020-01-28 16:25 | DS.PDOC ---
Discharge Summary General Date of Admission Jan 27, 2020 at 23:34 Date of Discharge 01/28/2020 Primary Care Physician: Luis Howard Attending Physician: JIGAR NEGRETE DO Specialist/Consultants Involve: Saniya Brandon MD Discharge Summary PROCEDURES PERFORMED DURING STAY: [None]. ADMITTING DIAGNOSES: 1. Metastatic signet ring cancer DISCHARGE DIAGNOSES: 1. Metastatic signet ring cancer COMPLICATIONS/CHIEF COMPLAINT: Adbominal Distention. HISTORY OF PRESENT ILLNESS: 74-year-old female with past medical history of metastatic stomach cancer, on immunotherapy, hypothyroidism and COPD presents from home with severe back pain. Patient was diagnosed almost 4 months ago, initially treated with 2 rounds of chemotherapy, now being treated with immunotherapy (Keytruda). She has had this chronic back pain since diagnosis, which is acutely worsened over the past few days to the point that her home pain regimen was not enough. She has associated vomiting, which is also at baseline, but new diarrhea which started today. Pain is located at her mid back level and wraps around the abdomen towards the epigastric region. Patient has no other associated symptoms, denies any shortness of breath, chest pain, headache or dizziness. HOSPITAL COURSE: Patient was admitted to the PCU and found to have intractable back pain accompanied by nausea most likely secondary to worsening metastatic disease. . She was started on IV fluids for hydration and pain control. Given her recent history of diarrhea, a stool sample was ordered but was never sent, as the patient's diarrhea stopped on admission. The patient was seen by her oncologist, Dr. Saniya Brandon, who discussed treatment options versus comfort measures only versus hospice with the patient. An MRI was ordered and offered to the patient to further workup her back pain, but the patient decided she did not want to have one. Ultimately, the patient decided to go home with hospice. A new MOLST form was filled out reflecting change in CODE STATUS. The patient was discharged home with pain management and hospice referral. DISCHARGE MEDICATIONS: Please see below. ALLERGIES: Please see below. PHYSICAL EXAMINATION ON DISCHARGE: VITAL SIGNS: Please see below. GENERAL APPEARANCE: Laying in bed, appears stated age, no acute distress, calm, cooperative HEENT: EOMI, PERRLA, neck is supple with no thyromegaly or lymphadenopathy RESPIRATORY: Lungs are clear to auscultation bilaterally with no adventitious breath sounds appreciated CARDIOVASCULAR: no JVD, RRR,no murmurs/rubs/gallops ABDOMEN: Soft, nontender to palpation in all four quadrants, no masses/organomegaly EXTREMITIES: no clubbing, cyanosis or edema noted NEUROLOGICAL: No obvious focal deficits PSYCHIATRIC: normal mood/affect Skin: No rashes or ulcers. LN: No significant cervical or inguinal lymphadenopathy LABORATORY DATA: Please see below. IMAGING: CT ABD/PELVIS: IMPRESSION: 1. Progressive metastatic disease with increase in size of adrenal masses, increase in size of at least 1 of the multiple mesenteric masses, and increase in size of left gluteal muscle metastasis. 2. No evidence of bowel obstruction or acute surgical process. 3. Colonic diverticulosis without active inflammation PROGNOSIS: Poor ACTIVITY: [As tolerated]. DIET: As tolerated DISCHARGE PLAN: Home with hospice DISPOSITION: . DISCHARGE INSTRUCTIONS: 1. Hospice will be contacting the patient within the next few days ITEMS TO FOLLOWUP ON ON OUTPATIENT: 1. none DISCHARGE CONDITION: [Stable]. TIME SPENT ON DISCHARGE: Greater than 35 minutes. Vital Signs/I&Os Vital Signs Date Time Temp Pulse Resp B/P (MAP) Pulse Ox O2 Delivery O2 Flow Rate FiO2 01/28/20 14:37 20 Room Air 01/28/20 08:00 97.7 89 129/58 (81) 94 I&O- Last 24 Hours up to 6 AM 01/28/20 06:00 Intake Total 1332 ml Output Total 0 ml Balance 1332 ml Laboratory Data Labs 24H Laboratory Tests 2 01/27/20 18:39: Immature Granulocyte % (Auto) 0.3, Neutrophils (%) (Auto) 81.1H, Lymphocytes (%) (Auto) 9.4L, Monocytes (%) (Auto) 6.8H, Eosinophils (%) (Auto) 1.5, Basophils (%) (Auto) 0.9, Neutrophils # (Auto) 7.9, Lymphocytes # (Auto) 0.9L, Monocytes # (Auto) 0.7, Eosinophils # (Auto) 0.2, Basophils # (Auto) 0.1, Nucleated Red Blood Cells % (auto) 0.0, Anion Gap 5L, Glomerular Filtration Rate > 60.0, C alcium Level 8.8, Total Bilirubin 0.4, Direct Bilirubin 0.1, Aspartate Amino Transf (AST/SGOT) 18, Alanine Aminotransferase (ALT/SGPT) 11L, Alkaline Phosphatase 117, Total Protein 6.5, Albumin 2.8L, Albumin/Globulin Ratio 0.76L, Lipase 57L 01/27/20 21:53: Urine Color YELLOW, Urine Appearance CLEAR, Urine pH 5.0, Urine Specific [place] 1.057, Urine Protein NEGATIVE, Urine Glucose (UA) NEGATIVE, Urine Ketones 1+H, Urine Blood NEGATIVE, Urine Nitrite NEGATIVE, Urine Bilirubin NEGATIVE, Urine Urobilinogen 4.0H, Urine Leukocyte Esterase NEGATIVE, Urine WBC (Auto) 3, Urine RBC (Auto) 3, Urine Hyaline Casts (Auto) 0, Urine Bacteria (Auto) NEGATIVE, Urine Squamous Epithelial Cells 0, Urine Mucus (Auto) SMALL, Urine Sperm (Auto) 01/28/20 04:43: Nucleated Red Blood Cells % (auto) 0.0, Anion Gap 7L, Glomerular Filtration Rate > 60.0, Calcium Level 8.3L, Total Bilirubin 0.3, Aspartate Amino Transf (AST/SGOT) 14, Alanine Aminotransferase (ALT/SGPT) 10L, Alkaline Phosphatase 108, Total Protein 5.8L, Albumin 2.6L, Albumin/Globulin Ratio 0.81L, Magnesium Level 2.0 CBC/BMP Laboratory Tests 01/27/20 18:39 01/28/20 04:43 Discharge Medications Scheduled Docusate Sodium (Colace) 100 Mg Capsule, 100 MG PO QHS, (Reported) Escitalopram Oxalate (Lexapro) 5 Mg Tab, 5 MG PO QHS, (Reported) Levothyroxine Sodium (Levothyroxine Sodium) 50 Mcg Tab, 50 MCG PO QHS, (Reported) Pantoprazole Sodium (Pantoprazole Sodium) 20 Mg Tablet.dr, 20 MG PO DAILY, (Reported) Tiotropium Br/Olodaterol HCl (Stiolto Respimat Inhal [place]) 4 Gm Mist.inhal, 1 PUFF INH DAILY, (Reported) Scheduled PRN Bisacodyl (Dulcolax) 5 Mg Tablet.dr, 2 TAB PO DAILY PRN for CONSTIPATION, (Reported) Hyoscyamine Sulfate (Hyoscyamine Sulfate) 0.125 Mg Tab.subl, 0.125 MG PO Q4HP PRN for TERMINAL SECRETIONS Use sublingually if unable to swallow Lorazepam (Lorazepam) 0.5 Mg Tablet, 0.5 MG PO Q4HP PRN for ANXIETY/AGITATION Use sublingually if unable to swallow Ondansetron (Ondansetron Odt) 4 Mg Tab.rapdis, 4 MG PO Q6-8HP PRN for nausea/vomiting Oxycodone/Acetaminophen (Oxycodone-Acetaminophen 5-325) 1 Each Tablet, 2 TAB PO Q4HP PRN for Pain 8-10 Prochlorperazine Maleate (Prochlorperazine Maleate) 10 Mg Tablet, 10 MG PO Q8H PRN for NAUSEA TAKE ONE TABLET EVERY 8 HOURS NEEDED FOR NAUSEA. Sennosides (Senna Laxative) 8.6 Mg Tablet, 8.6 MG PO DAILY PRN for CONSTIPATION, (Reported) Allergies Coded Allergies: morphine (Verified Adverse Reaction, Intermediate, HALLUCINATIONS, 02/13/19) GME ATTESTATION GME ATTESTATION My faculty preceptor for this patient encounter was physically present during encounter and was fully available. All aspects of the patient interview, examination, medical decision making process, and medical care plan development were reviewed and approved by the faculty preceptor. The faculty preceptor is aware and concurs with the plan as stated in the body of this note and will attest to such by his/her cosignature. ATTENDING NOTE I, Jigar Negrete, have independently examined this patient and performed my own physical exam, as well as reviewed the documentation. I have discussed in detail with the resident / student the findings and plan of treatment as documented by the resident / student. I agree with their findings and treatment plan. FABRICE SILVESTRE MD Jan 28, 2020 16:25 JIGAR NEGRETE DO Feb 03, 2020 12:05
[2020-01-28] MEDS ORDERED: FORMOTEROL FUMARATE 20 MCG/2 ML INHALATION SOLUTION (PERFOROMIST) INH SCH (20:00)
== END 2020-01-28 17:14 | disposition other institution (70) ==
LOC: M ED 17:29 → EDBD 17:29 → INTOOBSV 23:34 → M ED INP 23:34 → ENRESERV 23:54 → M PCU 01-28 00:48
PROVIDERS: ADMIT Internal Medicine; ATTEND Internal Medicine
DX: C78.89 Secondary malignant neoplasm of other digestive organs (principal); M54.9 Dorsalgia, unspecified; R10.9 Unspecified abdominal pain; G89.29 Other chronic pain; R19.7 Diarrhea, unspecified; R11.10 Vomiting, unspecified; E03.9 Hypothyroidism, unspecified; J44.9 Chronic obstructive pulmonary disease, unspecified; Z79.899 Other long term (current) drug therapy; Z88.5 Allergy status to narcotic agent; Z92.21 Personal history of antineoplastic chemotherapy
CPT/HCPCS: 36415; 74177; 80048; 80053; 80076; 81001; 83690; 83735; 85025; 85027; 93041; 96361; 96372; 96374; 96375; 96376; 97161; 99285; J1650; J2405; J3010; Q9963; Q9967